=== PATIENT | male | born 1980 | race Two or more races ===

== ENCOUNTER 2017-10-23 18:52 | Emergency (ER) | payer MEDICAID ==
[~2017-10-23] VITALS: Ht 180.3 cm; Wt 110.9 kg
[2017-10-23] MEDS ORDERED: KETOROLAC 30 MG/1 ML IM ONE (19:30)
[2017-10-23] MEDS ORDERED: KETOROLAC 30 MG/1 ML ONE (19:32)
[2017-10-23 19:36] VITALS: BP 153/87
== END 2017-10-23 19:55 | disposition home or self-care (01) ==
LOC: ED 19:15
DX: M54.42 Lumbago with sciatica, left side (principal); R05 Cough; F17.210 Nicotine dependence, cigarettes, uncomplicated
CPT/HCPCS: 71046; 96372; 99284; J1885